=== PATIENT | male | born 1960 | race Caucasian/White ===

== ENCOUNTER 2016-04-19 21:56 | Emergency (ER) | payer OTHER ==
[~2016-04-19] VITALS: Ht 180.3 cm; Wt 93.1 kg
[~2016-04-19 21:56] MED LIST: AMLODIPINE BESYL5 MG PO; AMLODIPINE-BEN1 EAC4 PO; ASPIR 8181 M1 PO; CELEBREX200 MG PO; CIALIS5 MG PO; CRESTOR10 MG PO; CRESTOR20 MG PO; DAILY VITAMIN1 EAC8 PO; LOSARTAN POTAS100 MG PO; MELOXICAM15 MG PO; MOBIC15 MG PO; MOTRIN600 MG PO; MOTRIN800 MG PO; NEXIUM20 MG PO; NEXIUM40 MG PO; PERCOCET 5/31 TABLET PO; VALIUM5 MG PO
[2016-04-19 22:45] LABS: HEMATOCRIT 44.6 % (38.0-50.0); MCHC 34.8 G/DL (30.0-36.0); MCV 89.2 FL (86-99); MEAN PLAT.VOLUME 9.7 uM^3 (9.0-12.4); PLATELET COUNT 243 K/uL (156-360); RBC DIS.WIDTH-CV 13.1 % (11.8-14.6); RBC DIS.WIDTH-SD 42.6 % (39-53); WHITE BLOOD COUNT 15.4 K/uL (4.1-10.2)
[2016-04-19 22:50] LABS: CHLORIDE 106 mEq/L (99-109); POTASSIUM 3.5 mEq/L (3.7-5.4); SODIUM 141 mEq/L (136-147)
[2016-04-19 22:52] LABS: GLUCOSE 135 mg/dL (70-99)
[2016-04-19 22:53] LABS: ANION GAP 11 MEQ/L (2-14)
[2016-04-19 22:54] LABS: TOTAL BILIRUBIN 0.3 mg/dL (0.0-1.0)
[2016-04-19 22:55] LABS: ALKALINE PHOSPHATASE 94 IU/L (3-129)
[2016-04-19 22:56] LABS: GFR ESTIMATE (CALCULATED) > 59 mL/min/
[2016-04-19 22:57] LABS: UREA NITROGEN (BUN) 21 mg/dL (9-23)
[2016-04-20 00:10] LABS: LIPASE 20 U/L (1.0-51.0)
[2016-04-20 00:15] LABS: TROP-I INTERPRETATION NEGATIVE; TROPONIN-I < 0.01 ng/mL (0.0-0.30)
[2016-04-20 02:09] LABS: TROP-I INTERPRETATION NEGATIVE; TROPONIN-I < 0.01 ng/mL (0.0-0.30)
[2016-04-20] MEDS ORDERED: ZOFRAN8 MG PO (03:22)
[2016-04-20] MEDS ORDERED: BENTYL20 MG PO (03:22)
[2016-04-20 03:36] VITALS: BP 121/72
== END 2016-04-20 03:37 | disposition home or self-care (01) ==
LOC: EME 21:56
PROVIDERS: Emergency Medicine
DX: R10.9 Unspecified abdominal pain (principal); R11.2 Nausea with vomiting, unspecified; R55 Syncope and collapse; D72.829 Elevated white blood cell count, unspecified
CPT/HCPCS: 74177; 76705; 80053; 81003; 83690; 84484; 85027; 93005; 99281; 99285; J2270; J2405; J7030; S0028

== ENCOUNTER → 2016-05-04 | Outpatient (CLI) | payer OTHER ==
[~2016-05-04] MED LIST changes: +BENTYL20 MG PO; +ZOFRAN8 MG PO
== END | disposition home or self-care (01) ==
LOC: NUC 07:00
DX: R10.13 Epigastric pain (principal); R10.11 Right upper quadrant pain; R11.0 Nausea; K21.9 Gastro-esophageal reflux disease without esophagitis; K76.0 Fatty (change of) liver, not elsewhere classified
CPT/HCPCS: 78227; A9537; J2805